=== PATIENT | female | born 1995 | race Asian ===

== ENCOUNTER 2017-03-13 22:47 | Emergency (ER) | payer BC ==
[2017-03-13 22:52] VITALS: BP 136/92
--- NOTE | 2017-03-13 23:24 | ED ---
Throat Pain/Nasal Congestion - HPI Summary HPI Summary: 22F presents with itchy water eyes for 2 weeks. She has history of allergies and states her eyes have been even worst this years. She has been using visine without relief. She does wear contacts. She denies any foreign body into eye. She denies any dry eye. She denies any change in vision, dilopia, or blurry vision. 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 She denies any thick discharge or being in contact with anyone with pink eye. - History of Current Complaint Chief Complaint: EDEyeProblem Time Seen by Provider: 03/13/17 22:54 - Allergies/Home Medications Allergies/Adverse Reactions: Allergies Allergy/AdvReac Type Severity Reaction Status Date / Time No Known Allergies Allergy Verified 08/16/15 10:58 PMH/Surg Hx/FS Hx/Imm Hx Cardiovascular History: Denies: Hx Hypertension Respiratory History: Reports: Hx Seasonal Allergies Musculoskeletal History: Reports: Other Musculoskeletal History - chronic L knee pain Infectious Disease History: No Infectious Disease History: Denies: Traveled Outside the [place] in Last 30 Days - Family History Known Family History: Positive: Other - allergies - Social History Alcohol Use: Rare Substance Use Type: Reports: None Smoking Status (MU): Never Smoked Tobacco Review of Systems Negative: Fever Positive: Drainage - watery, Erythema. Negative: Photophobia, Blurred Vision, Diplopia Positive: Nasal Discharge. Negative: Sore Throat Negative: Chest Pain Negative: Shortness Of Breath All Other Systems Reviewed And Are Negative: Yes Physical Exam Triage Information Reviewed: Yes Vital Signs On Initial Exam: Initial Vitals Temp Pulse Resp BP Pulse Ox 98.3 F 92 16 136/92 98 03/13/17 22:49 03/13/17 22:49 03/13/17 22:49 03/13/17 22:49 03/13/17 22:49 Vital Signs Reviewed: Yes Appearance: Positive: Well-Appearing Skin: Positive: Warm, Dry Head/Face: Positive: Normal Head/Face Inspection Eyes: Positive: EOMI, NEELIMA, Conjunctiva Inflammed. Negative: Discharge ENT: Positive: Normal ENT inspection, Pharyngeal erythema, Nasal congestion, TMs normal Respiratory/Lung Sounds: Positive: Clear to Auscultation, Breath Sounds Present Cardiovascular: Positive: Normal, RRR Diagnostics - Vital Signs Vital Signs Temp Pulse Resp BP Pulse Ox 03/13/17 23:09 98.4 F 92 18 136/92 98 03/13/17 22:49 98.3 F 92 16 136/92 98 - Laboratory Lab Statement: Any lab studies that have been ordered have been reviewed, and results considered in the medical decision making process. EENT Course/Dx - Course Course Of Treatment: 22F presents with itchy and watery eyes for 2 weeks. this occurs every year when has allergies. has been using visine without relief. wear contacts. eyes on exam do not appear as bacterial conjuncivitis, appear most like allergy and due to length of symptoms will add on azelastine for allergy symptoms, told to use artificial tears in case dry eyes are leading to symptoms also. patient understands and agrees with plan - Differential Diagnoses Differential Diagnoses: Allergic Rhinitis, Conjunctivitis, Corneal Abrasion - Diagnoses Provider Diagnoses: Allergic conjunctivitis Discharge - Discharge Plan Condition: Good Disposition: HOME Prescriptions: Azelastine 0.05% (OPHTH)(NF) [Optivar 0.05% (NF)] 1 drop BOTH EYES BID #1 btl Patient Education Materials: Allergic Rhinitis (ED) Referrals: Fercho Garcia MD [Medical Doctor] - Additional Instructions: Continue taking nasal spray and antihistamine daily Add eye drops one drop each eye twice a day, wait an hour before placing in contacts Use saline in eyes Follow up with optho if no improvement Return to ED if develop any new or worsening symptoms
== END 2017-03-13 23:31 | disposition home or self-care (01) ==
LOC: ED 22:47
DX: H10.10 Acute atopic conjunctivitis, unspecified eye (principal)
CPT/HCPCS: 99282